=== PATIENT | female | born 1955 | race Caucasian/White ===

== ENCOUNTER 2021-04-06 17:48 | Emergency (ER) | payer MEDICARE, MEDICAID ==
[~2021-04-06] VITALS: Ht 157.5 cm; Wt 77.4 kg
[2021-04-06 17:51] VITALS: BP 136/81
--- NOTE | 2021-04-07 00:01 | NUR ---
Patient given discharge instructions and they have confirmed that they understand the instructions. Patient ambulatory with steady gait. NAD, all questions answered appropriately, denies additional needs at this time. No personal belongings left in room after discharge.
== END 2021-04-07 00:04 | disposition home or self-care (01) ==
LOC: ED 18:00
DX: S80.02XA Contusion of left knee, initial encounter (principal); S69.92XA Unspecified injury of left wrist, hand and finger(s), initial encounter; W01.0XXA Fall on same level from slipping, tripping and stumbling without subsequent striking against object, initial encounter; Y93.89 Activity, other specified; Y92.89 Other specified places as the place of occurrence of the external cause; Y99.8 Other external cause status
CPT/HCPCS: 29125; 99284